=== PATIENT | male | born 1975 | race Caucasian/White ===

== ENCOUNTER 2021-09-22 07:47 | Emergency (ER) | payer OTHER, SELFPAY ==
[2021-09-22 07:57] VITALS: BP 107/71; PULSE 112; RESP 16; TEMP 37.4; O2SAT 91; BMI 28.0
--- NOTE | 2021-09-22 08:18 | ED_ITS ---
Documented by User: CHERYL Chirinos 09/22/21 16:12 HPI - COVID General: Chief Complaint: COVID symptoms Stated Complaint: FEVER/NO TASTE OR SMELL/COVID EXPOSURE Time Seen by Provider: 09/22/21 07:52 Triage information: Has fever, cough or shortness of breath . Exposure to COVID + person last 14 days History of Present Illness: HPI Narrative: Patient's had symptoms for 10 days now. Patient reports that he thinks he has Covid. Said he has had high fever headache body aches chills oxygen levels low 90s. says that he woke up with a startle from a chair this morning that concerned her. MD complaint: has COVID symptoms Prior covid testing: no COVID 19 common symptoms: positive fever(s), chills, body aches, headache(s), loss of sense of smell and/or taste and nausea; negative non-productive cough, productive cough, dyspnea, throat pain or nasal congestion COVID 19 other sytmptoms: negative chest pain Onset (ago): day(s) Severity: mild Treatment prior to arrival: none COVID Results: SARS-CoV-2 Antigen (Rapid) Negative (Negative) 09/22/21 08:40 09/22/21 Review of Systems Const: Reports: fever(s), chills and body aches Eyes: Denies: change in vision or blurry vision ENMT: Denies: throat pain or nasal congestion Card: Denies: chest pain or dyspnea on exertion Resp: Denies: dyspnea, productive cough or non-productive cough GI: Reports: nausea : Denies: difficulty urinating Musc: Denies: extremity pain Skin/Breast: Denies: rash Neuro: Reports: headache(s) Psych: Denies: anxiety or depression Kwaku/Lymph: Denies: easy bruising Physical Exam Const: COMMON NORMALS: no acute distress, average body habitus and patient oriented x3 HENMT: COMMON NORMALS: normocephalic HEAD & SCALP: normal to inspection and normocephalic FACE & SINUS: normal facial exam Eye: COMMON NORMALS: conjunctivae normal GENERAL EYE: appearance normal, both eyes and all related structures CONJUNCTIVA: Yes conjunctivae normal Neck/C-Spine: COMMON NORMALS: no JVD Chest: COMMONS NORMALS: normal inspection of the chest Resp: COMMON NORMALS: normal respiratory effort and clear to auscultation bilaterally; negative for No retractions and negative for No use of accessory muscles EFFORT & INSPECTION: Yes able to speak in complete sentences AUSCULTATION: clear to auscultation bilaterally Cardio: COMMON NORMALS: no JVD, regular rate and regular rhythm RATE: regular rate RHYTHM: regular rhythm GI: COMMON NORMALS: Normal to inspection, nondistended, normoactive bowel sounds present Extremity: COMMON NORMALS: normal to inspection and full ROM Neuro: COMMON NORMALS: patient oriented x3 and moves all extremities Psych: COMMON NORMALS: mental status grossly normal ATTITUDE: Yes calm MOOD & AFFECT: Yes anxious Course Vital Signs: Vital signs: Vital Signs Temperature 99.3 F 09/22/21 07:57 Pulse Rate 112 H 09/22/21 07:57 Respiratory Rate 16 09/22/21 07:57 Blood Pressure 107/71 09/22/21 07:57 Pulse Oximetry 91 09/22/21 07:57 MDM - COVID MDM Narrative: Medical decision making narrative: Patient presents positive Covid. Patient does not appear in any acute distress. He woke up startled this morning and thinks may be an anxiety attack. Patient has complaints of mild fever body aches. Denies any shortness of breath. Lab Data: Labs: Lab Results 09/22/21 08:40 SARS-CoV-2 Ag (Rap id) Negative (Negative) COVID Results: SARS-CoV-2 Antigen (Rapid) Negative (Negative) 09/22/21 08:40 09/22/21 Discharge Plan Discharge Patient Disposition: Home Clinical Impression: Suspected severe acute respiratory syndrome coronavirus 2 (SARS-CoV-2) infection Condition: Stable Prescriptions: New Decadron 6 mg tablet 6 mg PO DAILY Qty: 7 RF: 0 ProAir HFA 90 mcg/actuation HFA aerosol inhaler 2 inh inhalation Q6H PRN (Reason: shortness of breath or wheezing) Qty: 6.7 RF: 0 Discharge Orders: Discharge ED (Routine); Ordered 09/22/21 Ordered By: Kory Walker Discharge Diet: Usual diet Discharge Activity: Increase activity as tolerated Patient Instructions: COVID-19 (Coronavirus Disease 2019) (ED) Activity Restrictions/Additional Instructions: Follow-up with medical provider as directed. Take medications as prescribed. Return to the ER or your medical provider if condition worsens. Please read and understand discharge instructions. If any questions ask please. Coding Level of Care Code ED Meat Boner And Slicer for Chg Fwd Exam Comprehensive Documented by User: Yasmany Brock DO 09/23/21 06:48 HPI - COVID General: Chief Complaint: COVID symptoms Stated Complaint: FEVER/NO TASTE OR SMELL/COVID EXPOSURE Time Seen by Provider: 09/22/21 07:52 COVID Results: SARS-CoV-2 Antigen (Rapid) Negative (Negative) 09/22/21 08:40 09/22/21 Course Vital Signs: Vital signs: Vital Signs Temperature 99.3 F 09/22/21 07:57 Pulse Rate 112 H 09/22/21 07:57 Respiratory Rate 16 09/22/21 07:57 Blood Pressure 107/71 09/22/21 07:57 Pulse Oximetry 91 09/22/21 07:57 MDM - COVID MDM Narrative: Medical decision making narrative: Chart reviewed and patient discussed with midlevel. Agree with assessment and plan. Lab Data: Labs: Lab Results 09/22/21 08:40 SARS-CoV-2 Ag (Rap id) Negative (Negative) COVID Results: SARS-CoV-2 Antigen (Rapid) Negative (Negative) 09/22/21 08:40 09/22/21 Discharge Plan Discharge Patient Disposition: Home Clinical Impression: Suspected severe acute respiratory syndrome coronavirus 2 (SARS-CoV-2) infection Condition: Stable Prescriptions: New Decadron 6 mg tablet 6 mg PO DAILY Qty: 7 RF: 0 ProAir HFA 90 mcg/actuation HFA aerosol inhaler 2 inh inhalation Q6H PRN (Reason: shortness of breath or wheezing) Qty: 6.7 RF: 0 Discharge Orders: Discharge ED (Routine); Ordered 09/22/21 Ordered By: Kory Walker Discharge Diet: Usual diet Discharge Activity: Increase activity as tolerated Patient Instructions: COVID-19 (Coronavirus Disease 2019) (ED) Activity Restrictions/Additional Instructions: Follow-up with medical provider as directed. Take medications as prescribed. Return to the ER or your medical provider if condition worsens. Please read and understand discharge instructions. If any questions ask please. Coding Level of Care Code ED Meat Boner And Slicer for Mahamed Fwd Exam Comprehensive
--- NOTE | 2021-09-22 08:43 | PC.NURSE ---
reviewed discharge with patients , she verbalized understanding of all instructions, medications and quarantine. pt ambulated to [facility] without issue
[2021-09-22 10:05] LABS: SARS Covid-2 Antigen Negative (Negative)
== END 2021-09-22 08:45 | disposition home or self-care (01) ==
PROVIDERS: Emergency Provider Nurse Practitioner Family
DX: Z20.822 Contact with and (suspected) exposure to COVID-19 (principal)
CPT/HCPCS: 87426; 99281